=== PATIENT | male | born 1990 | race African-American/Black ===

== ENCOUNTER 2019-05-06 13:23 | Emergency (ER) | payer SELFPAY ==
[~2019-05-06] VITALS: Ht 175.3 cm; Wt 91.0 kg
[2019-05-06] MEDS ORDERED: CLINDAMYCIN 600 MG in DEXTROSE 5% WATER 50 ML IV ONE (15:15)
[2019-05-06] MEDS ORDERED: CLINDAMYCIN 600MG PREMIX 50 ML IV SCH (15:45)
[2019-05-06] MEDS ORDERED: DEXAMETHASONE 10 MG/ML VIAL IV ONE (15:45)
[2019-05-06 17:15] VITALS: BP 133/73
== END 2019-05-06 17:17 | disposition home or self-care (01) ==
LOC: ER 13:23
DX: K12.2 Cellulitis and abscess of mouth (principal); L03.211 Cellulitis of face
CPT/HCPCS: 96365; 96375; 99283; J1100; J3490; J7060